=== PATIENT | male | born 1950 | race Hispanic/Latino ===

== ENCOUNTER 2019-05-03 20:31 | Emergency (ER) | payer BC ==
[~2019-05-03] VITALS: Ht 172.7 cm; Wt 90.7 kg
[~2019-05-03 20:31] MED LIST: PREVACID30 M2 PO; Z.0.ATENOLOL50 MG PO; Z.0.LEVOXYL50 MCG PO; Z.0.MELOXICAM7.5 MG PO; Z.0.PRILOSEC40 MG PO; Z.0.PROSCAR5 MG PO; [UNRECOGNIZED DRUG - OTHER] PO
[2019-05-03] MEDS ORDERED: PREDNISONE20 MG PO (20:57)
[2019-05-03] MEDS ORDERED: VALACYCLOVIR500 MG PO (20:57)
[2019-05-03] MEDS ORDERED: ARTIFICIAL TEA1 EAC1 OP (20:59)
== END 2019-05-03 22:06 | disposition home or self-care (01) ==
LOC: ER 20:31
DX: G51.0 Bell's palsy (principal)
CPT/HCPCS: 99282

== ENCOUNTER 2024-07-09 10:00 | Outpatient (RCR) | payer MEDICARE ==
[~2024-07-09 10:00] MED LIST changes: +ARTIFICIAL TEA1 EAC1 OP; +PREDNISONE20 MG PO; +VALACYCLOVIR500 MG PO
== END 2024-08-03 ==
LOC: PT 10:00
PROVIDERS: ATTEND Student in an Organized Health Care Education/Training Program
DX: M62.81 Muscle weakness (generalized) (principal); M21.371 Foot drop, right foot

== ENCOUNTER → 2025-05-20 | Day surgery (SDC) | payer MEDICARE ==
[2025-05-11 11:27] LABS: BASOPHILS % 0.6 % (0.0-1.0); EOSINOPHILS % 2.3 % (0.0-6.0); LYMPHOCYTES % 28.4 % (18.0-39.1); MONOCYTES % 7.4 % (4.4-11.3); NEUTROPHILS % 60.9 % (38.7-80.0); RED CELL DISTRIBUTION WIDTH 14.1 % (11.7-14.4)
[~2025-05-20] MED LIST changes: +ARICEPT5 MG PO; +FENTANYL CITRATE/PF 100MCG/2 ML INJ ONE; +LIDOCAINE HCL 2% LOCAL INJ 5 ML SDV VIAL INJ ONE; +NEURONTIN300 MG PO; +PAROXETINE HCL20 MG PO; +PROPOFOL IV EMULSION 10 MG/ML 20 ML VIAL ONE; +ROPINIROLE HCL1 MG PO
[2025-05-20] MEDS: LACTATED RINGER'S 1,000 ML ONE (07:39)
[2025-05-20 10:25] VITALS: BP 141/78; PULSE 16; RESP 16; TEMP 97; O2SAT 96
== END | disposition home or self-care (01) ==
LOC: OR 06:14
PROVIDERS: ATTEND Internal Medicine Gastroenterology
DX: K29.50 Unspecified chronic gastritis without bleeding (principal); K22.70 Barrett's esophagus without dysplasia; D12.3 Benign neoplasm of transverse colon; K57.30 Diverticulosis of large intestine without perforation or abscess without bleeding; K64.8 Other hemorrhoids; I10 Essential (primary) hypertension; F17.210 Nicotine dependence, cigarettes, uncomplicated; Z01.812 Encounter for preprocedural laboratory examination; Z01.810 Encounter for preprocedural cardiovascular examination; Z68.32 Body mass index [BMI] 32.0-32.9, adult; Z79.899 Other long term (current) drug therapy; Z79.890 Hormone replacement therapy
CPT/HCPCS: 36415; 43239; 45385; 85025; 88305; 93005; J2003; J2704; J3010; J7121; 45378